=== PATIENT | female | born 1995 | race Caucasian/White ===

== ENCOUNTER 2016-07-28 12:48 | Emergency (ER) | payer MEDICAID ==
[~2016-07-28] VITALS: Ht 157.5 cm; Wt 68.5 kg
[2016-07-28 14:54] VITALS: BP 125/73
== END 2016-07-28 15:13 | disposition home or self-care (01) ==
LOC: ED 12:48
DX: S06.0X0A Concussion without loss of consciousness, initial encounter (principal); R03.0 Elevated blood-pressure reading, without diagnosis of hypertension; W11.XXXA Fall on and from ladder, initial encounter; Y93.89 Activity, other specified; Y99.8 Other external cause status; Y92.89 Other specified places as the place of occurrence of the external cause